=== PATIENT | male | born 1960 | race Caucasian/White ===

== ENCOUNTER 2018-04-13 08:47 | Observation (INO) | payer OTHER ==
[2018-04-13] MEDS ORDERED: PANTOPRAZOLE 40 MG INJ ONE (09:11)
[2018-04-13] MEDS ORDERED: ASPIRIN 81 MG CHEWABLE TABLET ONE (09:11)
[2018-04-13] MEDS ORDERED: METOPROLOL TAR 50 MG TAB ONE (09:11)
--- NOTE | 2018-04-13 09:34 | RAD REPORT ---
EXAM DESCRIPTION: RAD - Chest Single View - 04/13/2018 9:09 am CLINICAL HISTORY: CHEST PAIN Chest pain. COMPARISON: No comparisons FINDINGS: Portable technique limits examination quality. The lungs are grossly clear. The heart is normal in size. No displaced fractures. IMPRESSION: No acute intrathoracic process suspected.
[2018-04-13 09:39] LABS: ALT/SGPT 45 U/L (12-78); AST/SGOT 45 U/L (15-37); Albumin 3.8 g/dL (3.4-5.0); Alkaline Phosphatase 52 U/L (45-117); BUN Blood Urea Nitrogen 6 mg/dL (7-18); Bicarbonate 29 mmol/L (21-32); Bilirubin Direct 0.1 mg/dL (0-0.2); Bilirubin Total 0.4 mg/dL (0.2-1.0); CKMB Creatine Kinase MB 2.5 ng/mL (0.3-3.6); Creatine Phosphokinase 230 U/L (39-308); Glucose Level 125 mg/dL (74-106); Magnesium 1.6 mg/dL (1.8-2.4); NT PRO-BNP 71 pg/mL (<125); Potassium 3.3 mmol/L (3.5-5.1); Protein, Total 7.2 g/dL (6.4-8.2); Sodium Level 141 mmol/L (136-145)
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
[2018-04-13 09:56] LABS: Absolute Monocytes 0.6 K/uL (0.1-1.3); Absolute Neutrophil 3.9 K/uL (1.8-8.0); Basophils % 1.1 % (0-1.3); Eosinophils % 1.4 % (0-4.4); Hematocrit 39.8 % (39.6-49.0); Lymphocytes % 30.5 % (15.3-44.8); MCH 33.9 pg (27.0-35.0); MPV 7.5 fL (7.6-11.3); Monocytes % 9.6 % (3.3-12.3); RBC Red Blood Cell Count 4.02 M/uL (4.33-5.43)
[2018-04-13 09:59] LABS: Protime INR 1.02
[2018-04-13 10:21] LABS: Urine Blood NEGATIVE (NEG); Urine Glucose NEGATIVE (NEG); Urine Protein NEGATIVE (NEG); Urine Specific Gravity <1.005 (1.005-1.030)
[2018-04-13] MEDS ORDERED: NS KCL 20MEQ 1,000 ML IV ONE (10:33)
[2018-04-13] MEDS ORDERED: POTASSIUM CL SA 10 MEQ TAB PO ONE (10:33)
[2018-04-13] MEDS ORDERED: THIAMINE 200 MG/2 ML INJ ONE (10:33)
[2018-04-13] MEDS ORDERED: Magnesium Sulfate 1gm IVPB 2 GM/100 ML BAG IV ONE (10:34)
[2018-04-13 11:55] VITALS: BMI 28.7
[2018-04-13] MEDS ORDERED: ONDANSETRON 4 MG/2 ML VIAL IV PRN (11:57)
[2018-04-13] MEDS ORDERED: ACETAMINOPHEN 500 MG TAB PO PRN (11:57)
--- NOTE | 2018-04-13 13:26 | EKG ---
Test Date: 2018-04-13 Test Time: 08:58:16 Favor Maker: CHARLY MEASUREMENT RESULTS: Intervals: Rate: 76 TN: 174 QRSD: 114 QT: 394 QTc: 443 Kent: P: 3 TN: 174 QRS: -14 T: 21 INTERPRETIVE STATEMENTS: Normal sinus rhythm Normal ECG No previous ECG available for comparison Electronically Signed On 04-13-18 13:25:28 CDT by Asim Wadsworth
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
--- NOTE | 2018-04-13 17:26 | CON ---
Identification: A 57-year-old man. Additional Attending Physician: Dr. Zendejas. Reason For Consult: Chest pain. History Of Present Illness: Mr. Lacy started having chest pain yesterday. It was epigastric, nonradi ating, lasted 6 hours. Since he has been here in the hospital, EKGs and enzymes are not suggestive a bout this being an acute coronary syndrome. The EKG is completely normal. He has a history of heavy alcohol abuse, wants to quit. He has a history of weight loss. He has lost 130 pounds over the las t year. He has had knee surgeries. Nobody has ever looked at his gallbladder. He does not have nataly betes or high blood pressure. No history of stroke or myocardial infarction. Eight years ago, he stevens d a cardiac cath that was normal. Social History: Uses no tobacco. Alcohol use, moderate. No illegal drugs. No history of myocardial infarction, stroke. Medications: The patient's medications are lisinopril with hydrochlorothiazide. Physical Examination: General: He is 5 feet tall, 200 pounds. General: Alert, oriented, pleasant not in distress. He is a little bit tremulous, but not delirious . Neck: No carotid bruit. Lungs: Clear. Heart: Within normal limits. Extremities: Palpable, but diminished distal pulses. His electrocardiogram is normal. I think the patient should have prophylactic sedatives so he does n ot go into DTs. Regarding his chest pain, we should do an echocardiogram, pharmacologic stress test. We can do further evaluation such as a cardiac cath if those are suggestive that he needs it, but r ight now I am convinced this is not an acute coronary syndrome. Very often people with weight loss s uch as he has had gallstones and I think we should look into if that might be the cause. Thank you very much for your kind referral of Mr. Lacy. I will follow him with you. ELLA/HARRY Voice ID: [id number] Report ID: [id number]
[2018-04-13] MEDS ORDERED: chlordiazePOXIDE HCl 25 MG CAP PO SCH (18:00)
[2018-04-13] MEDS: chlordiazePOXIDE HCl 25 MG CAP PO SCH (19:10)
[2018-04-13] MEDS ORDERED: ATORVASTATIN 40 MG TAB PO SCH (21:00)
[2018-04-14] MEDS: chlordiazePOXIDE HCl 25 MG CAP PO SCH ×3 (00:04→11:29)
[2018-04-14 04:24] LABS: Absolute Lymphocytes (CBC) 1.9 K/uL (0.7-4.9); Absolute Monocytes 0.6 K/uL (0.1-1.3); Absolute Neutrophil 3.8 K/uL (1.8-8.0); Basophils % 0.8 % (0-1.3); Eosinophils % 2.6 % (0-4.4); Hematocrit 40.4 % (39.6-49.0); Lymphocytes % 29.8 % (15.3-44.8); MCV 98.9 fL (80-100); MPV 7.7 fL (7.6-11.3); Monocytes % 9.4 % (3.3-12.3); RBC Red Blood Cell Count 4.09 M/uL (4.33-5.43)
[2018-04-14 04:39] LABS: ALT/SGPT 38 U/L (12-78); AST/SGOT 33 U/L (15-37); Albumin 3.5 g/dL (3.4-5.0); Alkaline Phosphatase 41 U/L (45-117); BUN Blood Urea Nitrogen 8 mg/dL (7-18); Bicarbonate 31 mmol/L (21-32); Bilirubin Total 0.9 mg/dL (0.2-1.0); Glucose Level 110 mg/dL (74-106); Magnesium 1.8 mg/dL (1.8-2.4); Phosphorus 2.8 mg/dL (2.5-4.9); Potassium 3.8 mmol/L (3.5-5.1); Protein, Total 6.7 g/dL (6.4-8.2); Sodium Level 140 mmol/L (136-145)
[2018-04-14] MEDS ORDERED: METOPROLOL TAR 25 MG TAB PO SCH (06:00)
[2018-04-14] MEDS ORDERED: Magnesium Sulfate 1gm IVPB 1 GM/50 ML BAG IV ONE (07:30)
[2018-04-14 08:09] LABS: Thyroid Stimulating Hormone 2.77 uIU/mL (0.36-3.74)
[2018-04-14] MEDS ORDERED: REGADENOSON 0.4 MG/5 ML SYR IV ONE (08:46)
[2018-04-14] MEDS ORDERED: ASPIRIN EC 81 MG TAB PO SCH (09:00)
[2018-04-14] MEDS ORDERED: hydroCHLOROthiazide 12.5 MG CAP PO SCH (09:00)
[2018-04-14] MEDS ORDERED: THIAMINE HCL 100 MG TABLET PO SCH (09:00)
[2018-04-14] MEDS ORDERED: LISINOPRIL 20 MG TAB PO SCH (09:00)
[2018-04-14] MEDS ORDERED: FOLIC ACID 1 MG, MULTIVITAMINS INJ 10 ML, THIAMINE HCL 100 MG in NA CHLORIDE 0.9% 1,000 ML IV SCH (09:00)
[2018-04-14] MEDS ORDERED: FOLIC ACID 1 MG TABLET PO SCH (09:00)
[2018-04-14] MEDS ORDERED: POTASSIUM CL SA 10 MEQ TAB PO ONE (09:00)
[2018-04-14] MEDS ORDERED: HOME MED 1 EA UNK (Lisinopril/Hydrochlorothiazide [Lisinopril-Hctz 20-12.5 Mg Tab] 1 EACH) PO SCH (09:00)
[2018-04-14 09:13] VITALS: BP 139/88; TEMP 97.8
--- NOTE | 2018-04-14 10:22 | RAD REPORT ---
EXAM DESCRIPTION: US - Abdomen Exam Complete - 04/14/2018 7:52 am COMPARISON: None. FINDINGS: Gallbladder size is normal. No gallstones, wall thickening or pericholecystic fluid. Commo n bile duct is normal with no common duct stone identified. Liver is 16 cm in maximum dimension with the spleen 11 cm in maximum dimension. No focal lesion of the liver or spleen. Liver shows a slight i ncrease in overall echogenicity that is nonspecific but could indicate a mild fatty infiltration. No capsular nodularity. The pancreas is normal. No hydronephrosis or suspicious mass in either kidney. Aorta is normal is size. No ascites or bulky lymphadenopathy. No IVC abnormality. IMPRESSION: No gallbladder or biliary tree abnormality. No focal liver lesions seen. Liver echogenicity could indicated mild diffuse fatty infiltration.
--- NOTE | 2018-04-14 10:49 | RAD REPORT ---
EXAM DESCRIPTION: NM - Rest Stress Cardiac Imaging - 04/14/2018 10:35 am CLINICAL HISTORY: Chest pain COMPARISON: None. TECHNIQUE: The patient was administered 10.9 mCi of Tc 99m Sestamibi prior to resting SPECT imaging of the heart. The patient was then administered 32.2 mCi of Tc 99m Sestamibi following exercise or ph armacologic stress. Multiplanar SPECT images were reviewed. FINDINGS: The end diastolic volume is 153 ml, the end systolic volume is 77 ml, and the ejection fra ction is 49 %. No stress-induced ischemic changes are identifiable. Moderate diminished activity is seen along the i nferior wall from base to apex. This does not change between rest and stress imaging. This is probabl y diaphragmatic artifact but could be due from scarring. Correlation is needed with any EKG abnormali ty or other findings to support inferior wall scarring. IMPRESSION: No stress-induced ischemia. Fixed defect along the inferior wall favored to be attenuation artifact from diaphragm rather than sc arring. Correlation is needed with history and EKG findings. Enlarged end-diastolic volume of 153 mL. Ejection fraction is slightly below normal at 49%.
[2018-04-14 11:50] VITALS: O2SAT 98
--- NOTE | 2018-04-14 13:09 | P.DS ---
Admission Date: 04/13/18 Discharge Date: 04/14/18 Primary Care Provider: Candace Disposition: ROUTINE DISCHARGE Discharge Condition: GOOD Reason for Admission: Chest Pain Consultations: Cardiology-Dr. Wadsworth/Dr. Maza Procedures: Cardiac stress test: FINDINGS: The end diastolic volume is 153 ml, the end systolic volume is 77 ml , and the ejection fraction is 49 %. No stress-induced ischemic changes are identifiable. Moderate diminished activity is seen along the inferior wall from base to apex. This does not change between rest and stress imaging. This is probably diaphragmatic artifact but could be due from scarring. Correlation is needed with any EKG abnormality or other findings to support inferior wall scarring. IMPRESSION: No stress-induced ischemia. Fixed defect along the inferior wall favored to be attenuation artifact from diaphragm rather than scarring. Correlation is needed with history and EKG findings. Enlarged end-diastolic volume of 153 mL. Ejection fraction is slightly below normal at 49%. Abdominal ultrasound: Fatty liver noted. - Problems (1) Hyperlipidemia Current Visit: Yes Status: Chronic Qualifiers: Hyperlipidemia type: unspecified Qualified Code(s): E78.5 - Hyperlipidemia , unspecified (2) Alcohol abuse Current Visit: Yes Status: Acute (3) Chest pain Onset Date: 04/14/18 Current Visit: Yes Status: Acute Qualifiers: Chest pain type: unspecified Qualified Code(s): R07.9 - Chest pain, unspecified (4) HTN (hypertension) Onset Date: 04/14/18 Current Visit: Yes Status: Chronic Qualifiers: Hypertension type: essential hypertension Qualified Code(s): I10 - Essential (primary) hypertension (5) GERD (gastroesophageal reflux disease) Current Visit: Yes Status: Suspected Qualifiers: Esophagitis presence: esophagitis presence not specified Qualified Code(s) : K21.9 - Gastro-esophageal reflux disease without esophagitis Brief History of Present Illness: 57-year-old male present emergency room with chest pain. Patient with history of hypertension but not taking any medication. Patient also reports a history of alcohol abuse. He is trying to quit. Patient was evaluated the emergency room. He was admitted for further evaluation and treatment. Hospital Course: During the course of his stay, the patient was evaluated for his chest pain. Cardiology was consulted. Patient had a normal stress test showing no stress- induced ischemia. Ejection fraction was within normal range. Patient has hypertension and hyperlipidemia. At discharge patient will continue with Lipitor 40 mg daily, lisinopril 20 mg 1 pill daily, metoprolol 12.5 mg 1 pill twice daily, and aspirin 81 mg daily. Recommendation is to maintain blood pressures less 150/80. Further adjustment can be done by his PCP. Arrangements for the patient to establish care in the area will be arranged. Patient may follow up with cardiology in 2-4 weeks to monitor his progress. Patient admits to alcohol abuse. Patient plans to quit. Patient given Librium in the hospital. At discharge patient will continue with Librium 25 mg 3 times a day as needed for agitation. This is to be weaned off over the next week. Alcohol cessation education will be provided. Patient will continue with thiamine 100 mg daily and folic acid 1 mg Patient may have underlying GERD. Patient will continue with Protonix 40 mg 1 pill once daily. Vital Signs/Physical Exam: Temp Pulse Resp BP Pulse Ox 97.8 F 70 18 139/88 98 04/14/18 08:00 04/14/18 09:17 04/14/18 08:00 04/14/18 09:17 04/14/18 08:00 General: Alert, In no apparent distress, Oriented x3, Cooperative HEENT: Atraumatic Neck: Supple Respiratory: Clear to auscultation bilaterally, Normal air movement Cardiovascular: Normal pulses, Regular rate/rhythm Gastrointestinal: Normal bowel sounds, Soft and benign, Non-distended, No tenderness, No masses, No rebound, No guarding Musculoskeletal: No erythema, No tenderness, No warmth Integumentary: No tenderness/swelling, No erythema, No warmth, No cyanosis Neurological: Normal speech, Normal strength at 5/5 x4 extr, Normal tone, Normal affect Lymphatics: No axilla or inguinal lymphadenopathy Laboratory Data at Discharge: WBC 6.5 K/uL (4.3-10.9) 04/14/18 03:51 Hgb 13.9 g/dL (13.6-17.9) 04/14/18 03:51 Hct 40.4 % (39.6-49.0) 04/14/18 03:51 Plt Count 138 K/uL (152-406) L 04/14/18 03:51 PT 12.0 SECONDS (9.5-12.5) 04/13/18 09:00 INR 1.02 04/13/18 09:00 APTT 27.8 SECONDS (24.3-36.9) 04/13/18 09:00 Sodium 140 mmol/L (136-145) 04/14/18 03:51 Potassium 3.8 mmol/L (3.5-5.1) 04/14/18 03:51 BUN 8 mg/dL (7-18) 04/14/18 03:51 Creatinine 0.80 mg/dL (0.55-1.3) 04/14/18 03:51 Glucose 110 mg/dL (74-106) H 04/14/18 03:51 Phosphorus 2.8 mg/dL (2.5-4.9) 04/14/18 03:51 Magnesium 1.8 mg/dL (1.8-2.4) 04/14/18 03:51 Total Bilirubin 0.9 mg/dL (0.2-1.0) 04/14/18 03:51 AST 33 U/L (15-37) 04/14/18 03:51 ALT 38 U/L (12-78) 04/14/18 03:51 Alkaline Phosphatase 41 U/L (45-117) L 04/14/18 03:51 Troponin I < 0.02 ng/mL (0.0-0.045) 04/14/18 03:51 Triglycerides 113 mg/dL (<150) 04/14/18 03:51 Cholesterol 238 mg/dL (<200) H 04/14/18 03:51 HDL Cholesterol 78 mg/dL (40-60) H 04/14/18 03:51 Cholesterol/HDL Ratio 3.05 04/14/18 03:51 Lipase 254 U/L (73-393) 04/13/18 09:00 Home Medications: Lisinopril/Hydrochlorothiazide [Lisinopril-Hctz 20-12.5 mg Tab] 1 each PO DAILY 04/13/18 Aspirin [Aspirin EC 81 MG] 81 mg PO DAILY #90 tablet. 04/14/18 Atorvastatin Calcium [Lipitor] 10 mg PO BEDTIME #30 tab 04/14/18 Folic Acid 1 mg PO DAILY #90 tablet 04/14/18 Lisinopril [Prinivil*] 20 mg PO DAILY #30 tab 04/14/18 Metoprolol Tartrate [Lopressor*] 12.5 mg PO [id number] #60 tab 04/14/18 Pantoprazole [Protonix Tab] 40 mg PO DAILY #30 tab 04/14/18 Thiamine HCl [Vitamin B-1*] 100 mg PO DAILY #30 tablet 04/14/18 chlordiazePOXIDE HCl [Librium] 25 mg PO Q8HP PRN #10 cap 04/14/18 New Medications: Aspirin [Aspirin EC 81 MG] 81 mg PO DAILY #90 tablet.dr Lewis Calcium [Lipitor] 10 mg PO BEDTIME #30 tab chlordiazePOXIDE HCl [Librium] 25 mg PO Q8HP PRN #10 cap PRN Reason: Agitation Folic Acid 1 mg PO DAILY #90 tablet Lisinopril [Prinivil*] 20 mg PO DAILY #30 tab Metoprolol Tartrate [Lopressor*] 12.5 mg PO [id number] #60 tab Pantoprazole [Protonix Tab] 40 mg PO DAILY #30 tab Thiamine HCl [Vitamin B-1*] 100 mg PO DAILY #30 tablet Patient Discharge Instructions: 1. Follow up with a PCP in the area to establish care and follow up this hospitalization. 2. During the course of his stay, the patient was evaluated for his chest pain. Cardiology was consulted. Patient had a normal stress test showing no stress-induced ischemia. Ejection fraction was within normal range. Patient has hypertension and hyperlipidemia. He was placed on medication. At discharge he will continue with Lipitor 10 mg daily, lisinopril 20 mg 1 pill daily, metoprolol 12.5 mg 1 pill twice daily, and aspirin 81 mg daily. Recommendation is to maintain blood pressures less 150/80. Further adjustment can be done by his PCP. Patient may follow up with cardiology in 2-4 weeks to monitor his progress. 3. Patient admits to alcohol abuse. Patient plans to quit. Patient given Librium in the hospital. At discharge patient will continue with Librium 25 mg 3 times a day as needed for agitation. This is to be weaned off over the next week. Alcohol cessation education will be provided. Patient will continue with thiamine 100 mg daily and folic acid 1 mg. 4. Patient may have underlying GERD. Patient will continue with Protonix 40 mg 1 pill once daily. Diet: AHA Activity: Fall precautions Time spent managing pt's care (in minutes): 55
--- NOTE | 2018-04-14 13:16 | TREADPHA ---
DX: CHEST PAIN Date of Study: 04/14/18 Ht: 0 5 Wt: 200 lb 0 oz Consulting Physician: SHAQUILLE MEDICATIONS: TYLENOL, ASPIRIN, LIPITOR, LIBRIUM, FOLIC ACID, PRINIVIL, HYDROCHOLOROTHIAZIDE, LOPRESSOR, ZOFRAN. HISTORY: 57 YEAR OLD MALE HERE FOR CHEST PAIN. HISTORY OF HYPERTENSION AND GERD. PHYSICIAL EXAMINATION: RESTING B.P.: 150/98 RESTING H.R.: 70 RESTING EKG: NORMAL. PROTOCOL: LEXISCAN EXERCISE TIME: 3;30 B.P. AT [place]AK STRESS: 159/101 159/98 IMPRESSION: LEXISCAN STRESS TEST PERFORMED. CARDIOLITE INJECTED PER PROTOCOL. NO ARRHYTHMIAS NOTED. DENIES ANY CHEST PAIN. SEE NUCLEAR MEDICINE REPORT.
--- NOTE | 2018-04-14 13:18 | ECHO ---
HEIGHT: 0 ft 5 in WEIGHT: 200 lb 0 oz DATE OF STUDY: 04/14/[address]: Mercedes Zendejas MD 2-DIMENSIONAL: YES M.MODE: YES DOPPLER: YES COLOR FLOW: YES TDS: PORTABLE: DEFINITY: BUBBLE STUDY: DIAGNOSIS: CHEST PAIN CARDIAC HISTORY: CATHERIZATION: YES SURGERY: NO PROSTHETIC VALVE: NO PACEMAKER: NO MEASUREMENTS (cm) DIASTOLIC (NORMALS) SYSTOLIC (NORMALS) IVSd 0.9 (0.6-1.2) LA Diam 3.3 (1.9-4.0) LVEF 75% LVIDd 3.9 (3.5-5.7) LVIDs 2.2 (2.0-3.5) %FS 43% LVPWd 1.0 (0.6-1.2) Ao Diam 3.8 (2.0-3.7) 2 DIMENSIONAL ASSESSMENT: RIGHT ATRIUM: NORMAL LEFT ATRIUM: NORMAL RIGHT VENTRICLE: NORMAL LEFT VENTRICLE: NORMAL TRICUSPID VALVE: NORMAL MITRAL VALVE: NORMAL PULMONIC VALVE: NORMAL AORTIC VALVE: NORMAL PERICARDIAL EFFUSION: NONE AORTIC ROOT: NORMAL LEFT VENTRICULAR WALL MOTION: NORMAL DOPPLER/COLOR FLOW: NORMAL COMMENTS: NORMAL 2-DIMENSIONAL ECHOCARDIOGRAM WITH DOPPLER. NO WALL MOTION ABNORMALITY. NO EFFUSION. TECHNOLOGIST: TONY CASAS
--- NOTE | 2018-04-15 01:39 | PN ---
Date of Progress Note: 04/14/2018 Mr. Lacy was admitted by Dr. Zendejas on 04/13/[address] Wadsworth on the same day for chest pain . An echocardiogram which was done today was normal. Lexiscan was normal. There is a gallbladder u ltrasound that is still pending. He is cleared to go home from a cardiovascular standpoint. The [facility] pain noncardiac. NB/MODL Voice ID: [id number] Report ID: [id number]
== END 2018-04-14 14:16 | disposition home or self-care (01) ==
LOC: ER 08:47 → ERHOLD 09:45 → 4TH 10:44
PROVIDERS: ADMIT Family Medicine; ATTEND Family Medicine
DX: R07.9 Chest pain, unspecified (principal); I10 Essential (primary) hypertension; F10.10 Alcohol abuse, uncomplicated; E78.5 Hyperlipidemia, unspecified
CPT/HCPCS: 36415; 71045; 76700; 78452; 80048; 80053; 80061; 80076; 81003; 82550; 82553; 83690; 83735; 83880; 84100; 84132; 84439; 84443; 84484; 85025; 85610; 85730; 93005; 93017; 93306; 99285; A9500; C9113; G0378; J2785; J3411; J3475; J7030

== ENCOUNTER 2018-08-17 13:58 | Inpatient (IN) | payer OTHER ==
--- OUTSIDE RECORDS SUMMARY | 2018-08-17 14:01 | XMS REPORT ---
:1960 Author Organization [employer] Care Team Providers Name Role Phone Brody Vizcarra Provider Role Unavailable Allergies, Adverse Reactions, Alerts Substance Reaction Event Type N.K.D.A. Info Not Available Non Drug Allergy Problems Problem Type Condition Code Onset Dates Condition Status Assessment Gastroesophageal reflux disease K21.9 Active without esophagitis Assessment Chronic alcoholism in remission F10.21 Active Problem Gastroesophageal reflux disease K21.9 Active without esophagitis Problem Hyperlipidemia, unspecified E78.5 Active hyperlipidemia type Problem Essential (primary) hypertension I10 Active Assessment Essential (primary) hypertension I10 Active Assessment Hyperlipidemia, unspecified E78.5 Active hyperlipidemia type Problem Chronic alcoholism in remission F10.21 Active Medications Medication Code Code Instructions Start End Status Dosage System Date Date Pantoprazole Sodium [facility] 10436695915 40 MG Oral Active TK 1 T PO QD Rosuvastatin [facility] 88461043681 20 MG Orally Sept Active 1 tablet Calcium Once a day 2017 Folic Acid [facility] 88453880677 1 MG Oral Active TK 1 T PO QD Metoprolol Tartrate ND 20152563823 25 MG Oral Active TK 1/2 T PO D AT 6 AM Aspirin Low Dose [facility] 65936734689 81 MG Oral Active TK 1 T PO QD Lisinopril [facility] 30611613250 20 MG Oral Active TK 1 T PO QD Chlordiazepoxide [facility] 75332789488 25 MG Oral Sept Active (Schedule HCl 05, IV Drug) TK 2018 ONE C PO Q 8 H PRF AGITATION Results No Known Results Summary Purpose [employer] Submission
[2018-08-17] MEDS ORDERED: CIPROFLOXACIN 400mg IV 400 MG/200 ML BAG IV ONE (15:10)
[2018-08-17] MEDS ORDERED: METRONIDAZOLE 500mg IVPB 500 MG/100 ML BAG IV ONE (15:11)
[2018-08-17] MEDS ORDERED: METRONIDAZOLE 500mg IVPB 1,000 MG/200 ML BAG IV ONE (15:11)
[2018-08-17] MEDS ORDERED: NA CHLORIDE 0.9% 0 ML ONE (15:11)
[2018-08-17] MEDS ORDERED: NA CHLORIDE 0.9% 1,000 ML ONE (15:11)
[2018-08-17 15:23] LABS: Absolute Lymphocytes (CBC) 1.4 K/uL (0.7-4.9); Absolute Monocytes 0.8 K/uL (0.1-1.3); Absolute Neutrophil 8.8 K/uL (1.8-8.0); Basophils % 0.5 % (0-1.3); Eosinophils % 0.3 % (0-4.4); Hematocrit 47.4 % (39.6-49.0); Lymphocytes % 12.3 % (15.3-44.8); MCH 33.5 pg (27.0-35.0); MCV 100.1 fL (80-100); MPV 8.2 fL (7.6-11.3); Monocytes % 7.1 % (3.3-12.3); RBC Red Blood Cell Count 4.74 M/uL (4.33-5.43)
[2018-08-17 15:36] LABS: Protime INR 1.1
--- NOTE | 2018-08-17 15:38 | RAD REPORT ---
EXAM DESCRIPTION: RAD - Chest Single View - 08/17/2018 3:26 pm CLINICAL HISTORY: Cough, left-sided lower chest and abdomen pain COMPARISON: March 2018 TECHNIQUE: AP portable chest image was obtained 1502 hours . FINDINGS: Lungs are clear. Heart and vasculature are normal. No measurable pleural effusion and no p neumothorax. No acute bony abnormality seen. No acute aortic findings suspected. IMPRESSION: No acute cardiopulmonary process.
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
[2018-08-17 15:53] LABS: ALT/SGPT 66 U/L (12-78); AST/SGOT 51 U/L (15-37); Albumin 4.5 g/dL (3.4-5.0); Alkaline Phosphatase 55 U/L (45-117); BUN Blood Urea Nitrogen 6 mg/dL (7-18); Bicarbonate 26 mmol/L (21-32); Bilirubin Direct 0.4 mg/dL (0-0.2); Bilirubin Total 1.6 mg/dL (0.2-1.0); Glucose Level 99 mg/dL (74-106); Lipase 181 U/L (73-393); Magnesium 1.5 mg/dL (1.8-2.4); NT PRO-BNP 100 pg/mL (<125); Potassium 3.2 mmol/L (3.5-5.1); Protein, Total 8.4 g/dL (6.4-8.2); Sodium Level 139 mmol/L (136-145); Troponin (Emerg Dept Use Only) < 0.02 ng/mL (0.0-0.045)
--- NOTE | 2018-08-17 16:03 | EKG ---
Test Date: 2018-08-17 Test Time: 15:07:44 Belt Loop Maker: BRI MEASUREMENT RESULTS: Intervals: Rate: 100 MI: 180 QRSD: 112 QT: 354 QTc: 456 [place]: P: 55 MI: 180 QRS: 28 T: 41 INTERPRETIVE STATEMENTS: Normal sinus rhythm Normal ECG Compared to ECG 04/13/2018 08:58:16 No significant changes Electronically Signed On 08-17-18 16:02:27 [employer] TE[employer] by Asim Wadsworth
[2018-08-17] MEDS ORDERED: NS KCL 20MEQ 1,000 ML IV ONE (16:15)
[2018-08-17] MEDS ORDERED: Magnesium Sulfate 2gm IVPB 2 G/50 ML BAG IV ONE (16:16)
[2018-08-17] MEDS ORDERED: KCL 20 MEQ/100 mL IVPB 20 MEQ/100 ML BAG IV ONE (16:16)
[2018-08-17 16:52] LABS: Urine Blood TRACE (NEG); Urine Glucose NEGATIVE (NEG); Urine Protein 2+ (NEG); Urine Specific Gravity >1.030 (1.005-1.030)
--- NOTE | 2018-08-17 17:11 | RAD REPORT ---
EXAM DESCRIPTION: CT - Abdomen Pelvis W Contrast - 08/17/2018 4:54 pm CLINICAL HISTORY: Lower abdominal pain radiating to the left flank, bloody stools, history of divert iculitis COMPARISON: None. TECHNIQUE: Biphasic, helical CT imaging of the abdomen and pelvis was performed following 100 ml non -ionic IV contrast. Oral contrast was given. All CT scans are performed using dose optimization technique as appropriate and may include automated exposure control or mA/KV adjustment according to patient size. FINDINGS: No suspicious findings in the lung bases. Fat only hiatal hernia is present. Liver shows no focal parenchymal process. There is a slightly nodular contour present and serosa sore hepatic parenchymal disease are not excluded. No splenomegaly or focal splenic finding. No pancreati c or peripancreatic process seen. Gallbladder and biliary tree are also without suspicious finding. Symmetric renal function is seen with no hydronephrosis or suspicious renal mass. No pyelonephritis o r acute renal parenchymal process. No adrenal abnormality. Urinary bladder is contracted limiting ass essment. No prostate enlargement seen. No gastric dilatation or wall thickening. No dilated small bowel loop. No appendicitis findings. From cecum to the left-side transverse colon no acute findings seen. At the splenic flexure and continuin g to the proximal sigmoid colon there is a long segment circumferential wall thickening present. Ther e is adjacent edematous/inflammatory stranding. No one focal area of mass lesions seen. No extravasation of contrast. PO contrast has not reached the involved portion of the colon. No free air, free fluid or inflammatory stranding. No hernia, mass or bulky lymphadenopathy. No adrenal abno rmality. No suspicious bony findings. IMPRESSION: Long segment infectious/ inflammatory colitis pattern extending from the splenic flexure to the proximal sigmoid colon. No one focal area of mass lesion identifiable. No abscess, free air or other surgically emergent finding. Slight nodularity to the liver parenchyma it could indicate cirrhosis or hepatic parenchymal disease. There is fatty infiltration.
[2018-08-17] MEDS ORDERED: MORPHINE 4 MG/ML SYR ONE (17:44)
[2018-08-17] MEDS ORDERED: ONDANSETRON 4 MG/2 ML VIAL ONE (17:44)
[2018-08-17] MEDS ORDERED: CEFTRIAXONE/SWI 1gm 1 GM/10 ML SYR ONE (18:12)
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
[2018-08-17] MEDS ORDERED: ACETAMINOPHEN 500 MG TAB PO PRN (19:51)
--- NOTE | 2018-08-17 21:45 | CON ---
Date of Consultation: 08/17/2018 Brief History Of Present Illness: The patient is a 57-year-old male here from [place], who presents with a history of acute lower gastrointestinal diverticular bleeding approximately 2 years ago. He had a significant bleed at that time and was admitted to the hospital in an ICU and required resuscitation and endoscopy at that time. He is unaware if the endoscopy was for control of bleedin g or simply to document the bleeding. However, the medications were effective at stopping the bleedi ng by his report. He now presents with approximately 1-day history of lower abdominal pain beginning in the suprapubic area and left lower quadrant, somewhat similar before in the past, but more signif icant in severity than his last pain episode. He has never had diverticulitis, but he has had divert iculosis as described. He states that the pain is crampy in nature and sharp and buckled him over re quiring admission to the hospital for pain control as he states he was unable to control the pain, an d he has not had similar pain before in the past. No nausea or vomiting. He did have some blood in his stool, which was bright red, similar to his previous episode, but not as much volume. He was see n by an ER physician who did a rectal examination and only found that the exam was guaiac positive, b ut not grossly or frankly positive for blood in the rectal examination. Past Medical History: Significant for hypertension and bilateral knee arthritis and injury as a chil d from playing football. Past Surgical History: He has had bilateral inguinal hernias repair and a colonoscopy and EGD approx imately 2 years ago. Allergies: NO KNOWN DRUG ALLERGIES. Medications: He takes medication for high blood pressure. He additionally takes Tylenol No. 3 for h is knee pain, and he takes a baby aspirin 81 mg every day. He cannot remember the name of his hypert ensive medication. Social History: He denies smoking, alcohol, or recreational drug use. Family History: Noncontributory. Review of Systems: A 10-point review of systems other than HPI, denies. No constitutional complaints. Physical Examination: General: At the time of my examination, he is awake, alert, and oriented. Psychiatric: He is appropriate, conversive. HEENT: He is normocephalic. Sclerae are anicteric. His mucous membranes are moist. His oropharynx is clear. Neck: Supple. No JVD. CHEST: Normal expansion and excursion. Cardiovascular: Regular rate and rhythm. Pulmonary: Clear to auscultation bilaterally. Abdomen: Soft with mild suprapubic and left lower quadrant tenderness to palpation. No rebound. No guarding. The pain is minimal on deep palpation. No peritoneal signs. Negative Cline sign. Nega tive psoas sign. No hernias appreciated. Extremities: No clubbing, cyanosis, or edema. Rectal: As above. Laboratory Data: He had a laboratory exam, which revealed a white blood count of 11.0, hemoglobin 15 .9, hematocrit 47.4, platelet count is 135, neutrophils were 79.8%. His coags showed a PT of 13.0, I NR 1.1. His sodium 139, potassium 3.2, chloride 102, carbon dioxide 26, BUN 6, creatinine 0.8, gluco se 99, magnesium 1.5, total bilirubin 1.6, direct component 0.5. AST is 51, ALT 66, alkaline phospha tase is 55. His lipase is 181. He is getting a CT scan of the abdomen and pelvis; however, he has n ot had this yet. Chest x-ray was officially read as no acute cardiopulmonary process. Assessment And Plan: This is a 57-year-old male with gastrointestinal bleeding, likely from a divert icular bleed as he has a significant history of diverticular bleed in the past. It does not appear t o be hemodynamically significant or causing a significant drop in hemoglobin at this point. However, with his given history, I recommend admitting the patient, IV fluid hydration, n.p.o. status. Follo w up on a CT scan of the abdomen and pelvis. I have discussed endoscopy with the patient to include colonoscopy and possibly EGD based on his progression to the hospital and CT findings. The patient w ill be admitted. I have explained the risks, benefits, and alternatives of the above stated plan. The patient agrees to proceed as indicated. GAYLE/HARRY Voice ID: [id number] Report ID: [id number]
[2018-08-17] MEDS: CIPROFLOXACIN 400mg IV 400 MG/200 ML BAG IV SCH (21:55)
[2018-08-17] MEDS: MORPHINE 2 MG/ML SYR IV PRN (21:55)
[2018-08-17] MEDS: NACHLORIDE 0.45% 1,000 ML IV SCH (21:56)
[2018-08-18 01:13] VITALS: BMI 33.8
[2018-08-18] MEDS: METRONIDAZOLE 500mg IVPB 500 MG/100 ML BAG IV SCH ×3 (01:22→17:04)
[2018-08-18] MEDS: MORPHINE 2 MG/ML SYR IV PRN ×3 (01:25→09:10)
[2018-08-18] MEDS: INFLUENZA VACCINE (for 3y+) 0.5 ML DOSE IMVAC ONE ×2 (05:13→05:19)
[2018-08-18 05:54] LABS: Absolute Lymphocytes (CBC) 1.4 K/uL (0.7-4.9); Absolute Monocytes 0.8 K/uL (0.1-1.3); Absolute Neutrophil 7.6 K/uL (1.8-8.0); Basophils % 0.6 % (0-1.3); Eosinophils % 0.9 % (0-4.4); Hematocrit 43.1 % (39.6-49.0); Lymphocytes % 14.2 % (15.3-44.8); MCH 34.2 pg (27.0-35.0); MCV 100.6 fL (80-100); MPV 8.7 fL (7.6-11.3); Monocytes % 8.3 % (3.3-12.3); RBC Red Blood Cell Count 4.28 M/uL (4.33-5.43)
[2018-08-18 06:19] LABS: ALT/SGPT 46 U/L (12-78); AST/SGOT 31 U/L (15-37); Albumin 3.3 g/dL (3.4-5.0); Alkaline Phosphatase 41 U/L (45-117); BUN Blood Urea Nitrogen 5 mg/dL (7-18); Bicarbonate 27 mmol/L (21-32); Bilirubin Total 1.6 mg/dL (0.2-1.0); Glucose Level 98 mg/dL (74-106); Magnesium 1.9 mg/dL (1.8-2.4); Phosphorus 2.7 mg/dL (2.5-4.9); Potassium 3.6 mmol/L (3.5-5.1); Protein, Total 6.5 g/dL (6.4-8.2); Sodium Level 137 mmol/L (136-145)
[2018-08-18] MEDS ORDERED: KCL 20 MEQ/100 mL IVPB 20 MEQ/100 ML BAG IV SCH (08:00)
[2018-08-18] MEDS: CIPROFLOXACIN 400mg IV 400 MG/200 ML BAG IV SCH ×2 (09:00→22:35)
[2018-08-18] MEDS ORDERED: LABETALOL HCL 100 MG/20 ML IV PRN ×2 (09:31→15:00)
[2018-08-18] MEDS: LORazepam 2 MG/ML VIAL IV SCH ×3 (10:35→22:36)
[2018-08-18] MEDS: NACHLORIDE 0.45% 1,000 ML IV SCH ×2 (12:04→22:36)
--- NOTE | 2018-08-18 12:47 | P.PN ---
Subjective Date of Service: 08/18/18 Chief Complaint: Abdominal pain Subjective: Improving (Patient feels better, no blood per rectum, abdominal pain improving, patient revealed he in fact has a heavy alcohol usage currently and for over 20 years.) Physical Examination - Vital Signs Temperature: 97.8 F Blood Pressure: 173/96 Pulse: 77 Respirations: 17 Pulse Ox (%): 95 - Physical Exam General: Alert, In no apparent distress Gastrointestinal: Soft and benign, No tenderness, No masses, No rebound, No guarding - Studies Laboratory Data (last 24 hrs) 08/17/18 14:38: PT 13.0 H, INR 1.10 08/17/18 14:38: WBC 11.0 H, Hgb 15.9, Hct 47.4, Plt Count 135 L 08/17/18 14:38: Sodium 139, Potassium 3.2 L, BUN 6 L, Creatinine 0.80, Glucose 99, Magnesium 1.5 L, Total Bilirubin 1.6 H, AST 51 H, ALT 66, Alkaline Phosphatase 55, Lipase 181 Assessment And Plan - Current Problems (Diagnosis) (1) Lower GI bleed Onset Date: 08/18/18 Current Visit: Yes Status: Acute Plan: - continue antibiotics for colitis, recommend 7-10 day course of cipro / flagyl - continue medical magement for DT prevention, i have discussed alcohol cessation Physician Review: Patient Assessed, Agree with Above Assessment and Plan
[2018-08-18] MEDS ORDERED: SODIUM CHLORIDE 0.9% 10ML INJ IV PRN (16:43)
[2018-08-18] MEDS: PANTOPRAZOLE 40 MG INJ IVP SCH (17:03)
--- NOTE | 2018-08-18 21:52 | PN ---
Date of Progress Note: 08/18/2018 Subjective: The patient was seen and examined. Chart reviewed, and case discussed with RN and Dr. Alfredo yost. The patient does report continued bright red blood per rectum. No dizziness or lightheadedn ess. Abdominal pain has improved. Review of Systems: Negative except as above. Medications: List reviewed. Physical Examination: Vital Signs: Temperature 97.8, heart rate 77, blood pressure 173/96, respirations 17, and O2 95% on room air. General: Awake, alert, and oriented x3, in some mild distress. The patient does have some withdrawa l symptoms from alcohol with tremors. CV: S1, S2. Regular rate and rhythm. No murmurs. Respiratory: Moving air well bilaterally. No wheezing. Somewhat tachypneic. Gastrointestinal: Abdomen is soft. Mild tenderness to palpation. No rebound or guarding. Nondiste nded. Positive bowel sounds. Extremities: No clubbing, cyanosis, or edema. Neurologic: Nonfocal. Cranial nerves 2-12 intact grossly. Speech is normal. Skin: No rashes. Normal skin turgor. Laboratory Data: Sodium 137, potassium 3.6, chloride 104, CO2 27, BUN 5, creatinine 0.7, glucose 98, calcium 8.3, phosphorus 2.7, and magnesium 1.9. WBC 10.1, H and H 14.6 and 43.1, platelets 104, and neutrophils 76%. Fecal leukocyte stain moderate. Stool culture pending. Assessment And Plan: A 57-year-old male with; 1.Acute lower GI bleed, likely secondary to colitis. We will continue to monitor H and H, transfuse as needed. Dr. Story is on board. The patient will need a colonoscopy as an outpatient once the inflammation has settled. 2.Intractable generalized abdominal pain secondary to colitis. 3.Intractable nausea and vomiting. Continue antiemetics. Currently n.p.o. 4.Essential hypertension. We will resume IV p.r.n. medications as the patient is n.p.o. 5.Alcohol dependence with acute alcohol withdrawal. The patient is having tremors, elevated blood p ressure level, and tachypnea. We will start on Ativan IV scheduled and multivitamin with banana bag. 6.Hepatic cirrhosis. CT shows slight nodularity to the liver parenchyma, also shows fatty infiltrat ion. We will continue IV antibiotics for the colitis. Continue to monitor H and H and monitor for signs o f withdrawal. Use Ativan scheduled. Add PPI IV. Continue IV fluids and pain medications. Advance diet to clear liquids. Appreciate Dr. Story's input. Likely discharge in the next 48-72 hours dep ending on clinical response and withdrawal symptoms. /HARRY Voice ID: [id number] Report ID: [id number]
[2018-08-19] MEDS: METRONIDAZOLE 500mg IVPB 500 MG/100 ML BAG IV SCH ×2 (01:09→08:31)
[2018-08-19] MEDS: LORazepam 2 MG/ML VIAL IV SCH (04:43)
[2018-08-19 06:06] LABS: Absolute Lymphocytes (CBC) 1.1 K/uL (0.7-4.9); Absolute Monocytes 0.7 K/uL (0.1-1.3); Absolute Neutrophil 6.8 K/uL (1.8-8.0); Basophils % 0.5 % (0-1.3); Eosinophils % 1.4 % (0-4.4); Hematocrit 41.5 % (39.6-49.0); Lymphocytes % 12.1 % (15.3-44.8); MCH 34.7 pg (27.0-35.0); MCV 100.3 fL (80-100); MPV 8.9 fL (7.6-11.3); Monocytes % 8.4 % (3.3-12.3); RBC Red Blood Cell Count 4.14 M/uL (4.33-5.43)
[2018-08-19 06:15] LABS: ALT/SGPT 41 U/L (12-78); AST/SGOT 26 U/L (15-37); Albumin 3.3 g/dL (3.4-5.0); Alkaline Phosphatase 41 U/L (45-117); BUN Blood Urea Nitrogen 4 mg/dL (7-18); Bicarbonate 29 mmol/L (21-32); Bilirubin Total 1.3 mg/dL (0.2-1.0); Glucose Level 105 mg/dL (74-106); Protein, Total 6.6 g/dL (6.4-8.2); Sodium Level 141 mmol/L (136-145)
[2018-08-19] MEDS: CIPROFLOXACIN 400mg IV 400 MG/200 ML BAG IV SCH (08:31)
[2018-08-19] MEDS: PANTOPRAZOLE 40 MG INJ IVP SCH (08:32)
[2018-08-19] MEDS ORDERED: FOLIC ACID 1 MG, MULTIVITAMINS INJ 10 ML, THIAMINE HCL 100 MG in NA CHLORIDE 0.9% 1,000 ML IV SCH (09:00)
[2018-08-19 10:22] VITALS: O2SAT 96
--- NOTE | 2018-08-19 10:32 | P.PN ---
Subjective Date of Service: 08/19/18 Chief Complaint: Abdominal pain Subjective: Improving Physical Examination - Vital Signs Temperature: 97.5 F Blood Pressure: 145/79 Pulse: 83 Respirations: 16 Pulse Ox (%): 93 - Physical Exam General: Alert, In no apparent distress, Cooperative Gastrointestinal: Soft and benign, No ascites, No tenderness, No masses Assessment And Plan - Current Problems (Diagnosis) (1) Lower GI bleed Onset Date: 08/18/18 Current Visit: Yes Status: Acute Plan: - continue antibiotics for colitis, recommend 7-10 day course of cipro / flagyl - continue medical magement for DT prevention, i have discussed alcohol cessation Physician Review: Patient Assessed, Agree with Above Assessment and Plan
[2018-08-19] MEDS: NACHLORIDE 0.45% 1,000 ML IV SCH (11:51)
[2018-08-19 15:15] VITALS: BP 161/91; TEMP 97.9
[2018-08-19] MEDS ORDERED: LORazepam 2 MG/ML VIAL IV SCH (21:00)
--- NOTE | 2018-08-20 14:00 | DS ---
Date of Discharge: 08/19/2018 Consultants: Dr. Story with General Surgery. Admitting Diagnoses: 1.Acute lower gastrointestinal bleed. 2.Abdominal pain, generalized. 3.Intractable nausea and vomiting. 4.History of diverticulosis. 5.Essential hypertension. Discharge Diagnoses: 1.Acute lower gastrointestinal bleeding secondary to colitis. 2.Intractable generalized abdominal pain, resolved. 3.Intractable nausea and vomiting, resolved. 4.Essential hypertension, stable. 5.Alcohol dependence with acute alcohol withdrawal, on multivitamins and Librium taper. 6.Hepatic cirrhosis. The patient has nodularity to the liver parenchyma and fatty infiltrations. 7.Obesity. BMI of 33.9. Hospital Course: The patient is a 57-year-old male who came into the hospital with abdominal pain. The patient had a CT scan done, which showed long segment infectious inflammatory colitis pattern ext ending from the splenic flexure to the proximal sigmoid colon. No abscess. The patient did have sli ght nodularity to the liver parenchyma indicating cirrhosis or hepatic parenchymal disease along with fatty infiltration. The patient does have a history of chronic alcohol use. The patient was having withdrawal symptoms, however, no delirium tremens. The patient was started on Ativan IV and was tap ered. The patient did have some hypokalemia, which was corrected. The patient did well and responde d to IV antibiotics. His white blood cell count normalized. His electrolytes were replaced includin g potassium and magnesium. He was started on banana bag for his chronic alcohol use. The patient wa s seen by Dr. Story with General Surgery. He did have multiple bloody bowel movements. However, h is hemoglobin remained stable. The patient's pain improved. He was able to tolerate a diet. He was then cleared for discharge from Surgery standpoint. The patient will need outpatient colonoscopy wi alexsandra Story in 3-4 weeks once active inflammation has resolved. The patient does have history of diverticulosis. The patient otherwise did well. He was sent home in a stable condition. Activity: As tolerated. No driving or operating heavy machinery while on Librium. Diet: [place]ac[place] diet. Followup: Follow up with primary care physician in 2-3 days. Follow up with surgeon, Dr. Story in 3 weeks for colonoscopy. Return to ER for worsening condition. Medications: As per medication reconciliation list. Physical Examination: General: Awake, alert, oriented x3. No acute distress. Obese male. CV: S1, S2. No murmurs. Respiratory: Moving air well bilaterally. No wheezing. Gastrointestinal: Abdomen is soft, nontender, nondistended. Positive bowel sounds. Extremities: No clubbing, cyanosis, edema. Neurologic: Nonfocal. Total time spent discharging the patient was 43 minutes. /HARRY Voice ID: [id number] Report ID: [id number]
== END 2018-08-19 15:11 | disposition home or self-care (01) | DRG 392 ==
LOC: ER 13:58 → ERHOLD 15:43 → 2ND 19:33
PROVIDERS: ADMIT Family Medicine; ATTEND Family Medicine
DX: K52.9 Noninfective gastroenteritis and colitis, unspecified (principal); F10.239 Alcohol dependence with withdrawal, unspecified; I10 Essential (primary) hypertension; K74.60 Unspecified cirrhosis of liver; E66.9 Obesity, unspecified; E87.6 Hypokalemia; M13.862 Other specified arthritis, left knee; M13.861 Other specified arthritis, right knee; Z79.82 Long term (current) use of aspirin; Z68.33 Body mass index [BMI] 33.0-33.9, adult
CPT/HCPCS: 36415; 71045; 74177; 80048; 80053; 80076; 81003; 83690; 83735; 83880; 84100; 84484; 85025; 85610; 86850; 86900; 86901; 87045; 87046; 87086; 87088; 89055; 93005; 99285; C9113; J0696; J0744; J2270; J2405; J3411; J3475; J7030; Q2035; Q9967